=== PATIENT | male | born 1945 | race Caucasian/White ===

== ENCOUNTER 2016-06-15 12:03 | Outpatient (CLI) | payer MEDICARE ==
[2016-06-15 12:50] LABS: Hemoglobin A1c 4.1 % (4.0-6.0)
[2016-06-15 13:17] LABS: ALT (SGPT) 34 U/L (0-55); AST (SGOT) 24 U/L (5-34); Albumin 4.4 g/dL (3.4-4.8); Alkaline Phosphatase 75 U/L (40-150); Anion Gap 13 mmol/L (10-20); BUN (Urea Nitrogen) 13 mg/dL (8.4-25.7); Bilirubin, Direct 0.4 mg/dL (0.1-0.3); Calc. Creatinine Clearance 0 mL/min (70-130); Calcium 9.2 mg/dL (7.8-10.44); Carbon Dioxide 26 mmol/L (23-31); Cardiac Risk 3.7 (Less than 4.5); Chloride 100 mmol/L (98-107); Cholesterol 122 mg/dL (< 200 Desired); Estimated GFR-MDRD 87; Glucose 98 mg/dL (80-115); HDL Cholesterol 33 mg/dL (>60 Neg Risk); LDL Cholesterol, Calculated 46 mg/dL; Potassium 4.3 mmol/L (3.5-5.1); Sodium 135 mmol/L (136-145); Triglycerides 217 mg/dL (Less than 150)
[2016-06-15 14:34] LABS: Anisocytosis SLIGHT = 6-15 cells (100X) (0-5/hpf); Band 1 % (5-11); Hemoglobin 14.9 g/dL (14.0-18.0); Lymphocytes 70 % (21-51); MDiff Complete? YES; Mean Corpuscular HGB CONC 35.4 g/dL (32.0-36.0); Mean Corpuscular Hemoglobin 33.5 pg (27.0-31.0); Mean Corpuscular Volume 94.5 fl (80.0-94.0); Mean Platelet Volume 7.3 fL (7.4-10.4); Monocytes 5 % (0-10); Neutrophil 24 % (42-75); PLT Morphology Comment Appears Decreased; Platelet Count 72 thou/uL (130-400); RBC Distribution Width 12.7 % (11.5-14.5); Red Blood Cell (RBC) Count 4.45 mill/uL (4.70-6.10); White Blood Cell (WBC) Count 32.8 thou/uL (4.8-10.8)
== END 2016-06-15 12:04 | disposition home or self-care (01) ==
LOC: NAVSJIPCSP 12:03
PROVIDERS: ATTEND Family Medicine
DX: C91.10 Chronic lymphocytic leukemia of B-cell type not having achieved remission (principal); I10 Essential (primary) hypertension; R60.9 Edema, unspecified; M10.9 Gout, unspecified; Z79.899 Other long term (current) drug therapy
CPT/HCPCS: 36415; 80048; 80061; 80076; 83036; 84443; 85025

== ENCOUNTER 2016-10-19 10:26 | Outpatient (CLI) | payer MEDICARE ==
[2016-10-19 12:57] LABS: ALT (SGPT) 26 U/L (8-55); AST (SGOT) 19 U/L (5-34); Albumin 4.1 g/dL (3.4-4.8); Alkaline Phosphatase 67 U/L (40-150); Anion Gap 13 mmol/L (10-20); BUN (Urea Nitrogen) 9 mg/dL (8.4-25.7); Bilirubin, Direct 0.4 mg/dL (0.1-0.3); Bilirubin, Total 0.9 mg/dL (0.2-1.2); Calc. Creatinine Clearance 0 mL/min (70-130); Calcium 9.3 mg/dL (7.8-10.44); Carbon Dioxide 26 mmol/L (23-31); Cardiac Risk 4.9 (Less than 4.5); Chloride 106 mmol/L (98-107); Cholesterol 136 mg/dl (< 200 Desired); Estimated GFR-MDRD 82; Glucose 98 mg/dL (80-115); HDL Cholesterol 28 mg/dL (>60 Neg Risk); LDL Cholesterol, Calculated 76 mg/dL; Potassium 5.1 mmol/L (3.5-5.1); Protein, Total 6.5 g/dL (5.8-8.1); Sodium 140 mmol/L (136-145); Triglycerides 158 mg/dL (Less than 150)
[2016-10-19 13:04] LABS: Hemoglobin A1c 4.2 % (4.0-6.0)
[2016-10-19 13:12] LABS: PSA-Asymptomatic (SCREENING) 0.99 ng/mL (0-4.0); Thyroid Stimulating Hormone 3.2364 uIU/mL (0.35-4.94)
[2016-10-19 14:27] LABS: Band 1 % (5-11); Crenated RBC SLIGHT = 1-5 cells (100X) (None Seen); Hemoglobin 14.8 g/dL (14.0-18.0); Lymphocytes 27 % (21-51); MDiff Complete? YES; Mean Corpuscular HGB CONC 34.6 g/dL (32.0-36.0); Mean Corpuscular Volume 95.1 fl (80.0-94.0); Mean Platelet Volume 6.9 fL (7.4-10.4); Neutrophil 12 % (42-75); PLT Morphology Comment Appears Decreased; Platelet Count 100 thou/uL (130-400); RBC Distribution Width 12.8 % (11.5-14.5); Reactive Lymphocytes 60 % (0-10); Red Blood Cell (RBC) Count 4.48 mill/uL (4.70-6.10); Reflex for Review?? NO; White Blood Cell (WBC) Count 29.4 thou/uL (4.8-10.8)
== END 2016-10-19 10:27 | disposition home or self-care (01) ==
LOC: NAVSJIPCSP 10:26
PROVIDERS: ATTEND Family Medicine
DX: Z12.5 Encounter for screening for malignant neoplasm of prostate (principal); J06.9 Acute upper respiratory infection, unspecified; C91.10 Chronic lymphocytic leukemia of B-cell type not having achieved remission; I10 Essential (primary) hypertension; M10.9 Gout, unspecified; R60.9 Edema, unspecified; G25.0 Essential tremor; L40.9 Psoriasis, unspecified; Z79.899 Other long term (current) drug therapy
CPT/HCPCS: 36415; 80048; 80061; 80076; 83036; 84443; 85025; G0103